=== PATIENT | female | born 1985 | race African-American/Black ===

== ENCOUNTER 2023-03-04 12:10 | Outpatient (REF) | payer OTHER, SELFPAY | END 2023-03-04 12:11 | disposition home or self-care (01) | LOC: HO.LAB 12:10 | PROVIDERS: Visit Provider Psychiatry & Neurology Neurology | DX: Z13.89 Encounter for screening for other disorder (principal) ==

== ENCOUNTER 2023-03-23 13:08 | Outpatient (REF) | payer OTHER, SELFPAY ==
[2023-03-23 15:07] LABS: Anion Gap 11 (12-20); Blood Urea Nitrogen 9 mg/dL (9-16); Calcium 9.9 mg/dL (8.4-10.2); Carbon Dioxide 24 mmol/L (22-29); Chloride 107 mmol/L (96-108); Estimated Glomerular Filt Rate 58; Glucose Random 85 mg/dL (60-115); Sodium 138 mmol/L (135-145)
[2023-03-23 15:13] LABS: Thyroid Stimulating Hormone 1.65 uIU/mL (0.32-4.0)
[2023-03-25 17:42] LABS: Ceruloplasmin 41 mg/dL (18-53)
== END 2023-03-23 13:09 | disposition home or self-care (01) ==
LOC: HO.LAB 13:08
PROVIDERS: Visit Provider Psychiatry & Neurology Neurology
DX: G93.40 Encephalopathy, unspecified (principal)
CPT/HCPCS: 36415; 80048; 82390; 82525; 84443

== ENCOUNTER 2024-07-19 12:36 | Outpatient (RCR) | payer OTHER, SELFPAY ==
--- NOTE | 2024-07-20 09:37 | PC.NURSE ---
Patient has a dx of Schizoaffective disorder Bipolar type. She appeared internally preoccupied this morning, appeared to be responding to internal stimuli. Laughing to herself. At times she was seen sucking her thumb. Patient appears paranoid looking all around the room moving her face back and fourth. Patient was meeting with [facility] staff Rema when I introduced myself to Naa and asked her how she was feeling today. She did not respond to me. She stood up and grabbed a pen and stuck it under the arm of her jacket then she took the pen out held it in her hand and pointed the pen in front of her sticking straight out. Patient repeated over and over, I did not do anything bad this time . Security was called. Reviewed patient information with security. Patient on a section 12 A. She was escorted to the ER by security and [facility] staff with much encouragement. Patient to be evaluated by [facility] care team. Nurse to Nurse done with Christine BENOIT in the POD. Reviewed patient information with Elizabeth from the care team.
== END 2024-07-20 12:30 | disposition home or self-care (01) ==
LOC: HO.PHPA 12:36
PROVIDERS: Visit Provider Psychiatry & Neurology Psychiatry
DX: F25.0 Schizoaffective disorder, bipolar type (principal)
CPT/HCPCS: 90791

== ENCOUNTER 2024-07-20 09:42 | Emergency (ER) | payer OTHER, SELFPAY ==
[2024-07-20 09:51] VITALS: BP 162/89; PULSE 104; RESP 20; TEMP 37.5; O2SAT 95; BMI 41.2
--- NOTE | 2024-07-20 09:54 | MHC.CARE ---
CARE Team received a call from PHP RN Isabella, Pt is being brought over to [facility] ED on [address] secondary to concerns related to psychosis, Pt was presenting as disorganized, paranoid, agitation, appears to be responding to internal stimuli, displaying odd behaviors , and put a pen in the pocket then took it out then pointed it towards the tutoring clinician. She reported that she does not feel PHP is an appropriate level of care and recommended [facility] services in lieu of PHP if cleared.
--- NOTE | 2024-07-20 10:11 | ED_ITS ---
HPI - Psych General Chief Complaint: Psychiatric Symptoms Stated Complaint: psychosis Time Seen by Provider: 07/20/24 09:49 Source: patient and EMS Mode of arrival: EMS Limitations: no limitations History of Present Illness HPI Narrative: 39-year-old female past medical history of schizoaffective disorder presents emergency department after having initial intake yesterday came in disorganized with thought she was on and they are concerned about her safety patient did pull out appendicitis pointing at staff and was threatening patient denies SI or HI patient is calm and cooperative complaint: other Related Data Allergies Allergy/AdvReac Type Severity Reaction Status Date / Time Unable to Assess Allergy Verified 07/20/24 09:57 Review of Systems Review of Systems: Review of systems: General: Patient denies any fever chills recent illness or falls Musculoskeletal: Denies back pain or body aches or other injuries HEENT: denies headache, runny nose, ear pain Respiratory: denies shortness of breath, cough Cardiovascular: no chest pain or palpitations : denies dysuria, frequency Abdomen: no nausea vomiting denies abdominal pain Extremities: no swelling, no pain Skin: no diaphoresis Yes all other systems are reviewed and are negative PMFSH Social History Social History Household Members: None Advance Directives: No Advance Directives Information Provided: No Physical Exam Vital Signs: Vital Signs: Last Vital Signs Temp 99.5 F 07/20/24 10:19 Pulse 104 H 07/20/24 10:19 Resp 20 07/20/24 10:19 BP 146/83 H 07/20/24 10:33 Pulse Ox 95 07/20/24 10:19 O2 Del Method Room Air 07/20/24 10:19 BMI result Body Mass Index 41.2 General: Well-appearing well-nourished in no signs of distress HEENT: Normocephalic atraumatic Neck: No signs of JVD, no masses no tenderness or lymphadenopathy Cardiovascular: Regular rate and rhythm Respiratory: Clear to auscultation bilaterally Abdomen: Soft nontender no masses Extremities: Normal pedal pulses no signs of edema Skin: Dry warm no rashes Back: No tenderness full ROM Course Course Course Narrative: Seen by Care team and she is safe to go home. NO SI HI or psychosis is doing better today than yesterday and safe to go home. Medical Decision Making Medical Decision Making [facility] Narrative: patient looks well we will have evaluation by care team for safety Differential Diagnosis Differential Diagnoses: The differential diagnosis associated with the presentation includes patient looks well has no who concerning factors for her exam she is refusing the IV blood work and wants to see the care team care team state they will see the patient without the blood work care team consult was ordered Discharge Plan Discharge Clinical Impression: Acute psychosis, Chronic schizophrenia Patient Disposition: Home, Self-Care Instructions: Schizophrenia (ED), Psychotic Disorder (ED) Additional Instructions: you were seen in the emergency department for concern for her safety. You were seen and evaluated. Please call follow up with your doctor Interventions: [place]-Suicide Risk Severity Scale Last Done: 07/20/24 09:58 Print Language: [place]
[2024-07-20 10:19] VITALS: BP 162/89; PULSE 104; RESP 20; TEMP 37.5; O2SAT 95
[2024-07-20 10:33] VITALS: BP 146/83
[2024-07-20 11:15] VITALS: BP 146/83; PULSE 104; RESP 20; TEMP 37.5; O2SAT 95
--- NOTE | 2024-07-20 11:23 | MHC.CARE ---
Pt does not present as an imminent risk and does not meet the criteria for a higher level of care. Pt will not be returning to PHP as staff does not feel Pt is appropriate for that level of care. Provider in agreement.
== END 2024-07-20 11:16 | disposition home or self-care (01) ==
PROVIDERS: Emergency Provider Student in an Organized Health Care Education/Training Program
DX: F25.9 Schizoaffective disorder, unspecified (principal); F23 Brief psychotic disorder
CPT/HCPCS: 99284; S9485